=== PATIENT | male | born 1980 | race Caucasian/White ===

== ENCOUNTER 2021-07-14 14:42 | Emergency (ER) | payer OTHER ==
--- OUTSIDE RECORDS SUMMARY | 2021-07-14 14:52 | XMS REPORT | Continuity of Care Document ---
:1980 Author Organization [facility] Address [address] [place] [address] Care Team Providers Name Role Phone IHDE_G Attending Clinician Unavailable Froy Sherman MD, Deb Attending Clinician [phone] Unknown, Attending Attending Clinician Unavailable Momo Hendricks MD Attending Clinician IHDE_G Admitting Clinician Unavailable Payers Payer Name Policy Type Policy Number Effective Date Expiration Date [facility] [id number] 2016 00:00:00 Problems Condition Condition Condition Status Onset Resolution Last Treating Co mments Source Name Details Category Date Date Treatment Clinician Date No known No known Disease Unive rs active active ity of problems problems [facility] Allergies, Adverse Reactions, Alerts Allergy Allergy Status Severity Reaction(s) Onset Inactive Treating Comm ents Source Name Type Date Date Clinician Sulfa Propensi Active Rash Univers (Sulfona ty to 6-16 ity of mide adverse 00:00: [place] Antibiot reaction 00 Medica l ics) s Branch Abilify Allergy Active Severe Other [place] to da substan Medical e [facility] SULFA Allergy Active Severe Other [place] (SULFONA to da MIDE substan Medical ANTIBIOT e Group ICS) Social History Social Habit Start Date Stop Date Quantity Comments Source Sex Assigned At [facility] Smoking Status Start Date Stop Date Source Never Smoker [facility] Current every day smoker 2019-05-10 00:00:00 Uni [facility] Medications Ordered Filled Start Stop Current Ordering Indication Dosage Frequency Signature Comments Components Source Medication Medication Date Date Medication? Clinician (SIG) Name Name ketorolac 2020- No [id number] 30mg Un cristobal (TORADOL) 05-11 ity of injection 02:30: 02:09 [place] 30 mg 00 :00 Medical Branch ketorolac 2019-0 2020- No [id number] 30mg 30 mg, Univers (TORADOL) 2-22 02-22 Intramuscu ity of injection 02:30: 02:09 lar, ONCE, [place] 30 mg 00 :00 1 dose, Medical Fri Branch 05/10/19 at 2030, Routine
wireless team member approving Restricted medication : MOMO HENDRICKS naproxen 2019-0 Yes [id number] 500mg Take 1 U nivers 500 mg 2-21 tablet by ity of tablet 00:00: mouth 2 (two) Medical times Branch daily with meals. cyclobenzap 2019-0 Yes [id number] 7.5mg Take 1 Univers rine 7.5 mg 2-21 tablet by ity of tablet 00:00: mouth 3 (three) Medical times Branch daily as needed for Muscle Spasms. lisdexamfet Yes Vyvanse 30 Univers amine 2-01 mg capsule ity of (VYVANSE) 01:37: Take 1 [place] 30 mg 07 capsule Medical capsule every day Branch by oral route. lisinopril 2018-03 Yes 10mg Take 10 mg U nivers 10 mg 2-21 by mouth ity of tablet 00:00: daily. Medical Branch venlafaxine 0 Yes Effexor XR Univers XR (EFFEXOR 6-22 150 mg ity of XR) 150 mg 00:00: capsule,ex [place] 24 hr 00 tended Medical capsule release Branch Take 1 capsule every day by oral route. ketorolac 2017- Yes 1[drp] Place 1 Uni vers 0.4 % 9-20 Drop in ity of ophthalmic 00:00: [place] eye [place] solution 00 4 (four) Medical times Branch daily. gentamicin 2018-0 Yes 1[drp] Place 1 Un cristobal 0.3 % 9-20 Drop in ity of ophthalmic 00:00: right eye [place] drops 00 every 4 Medical (four) Branch hours. traMADOL 2020- No 50mg Take 1 Univer s (ULTRAM) 50 6-16 02-21 tablet by it y of mg tablet 00:00: 00:00 mouth [place] 00 :00 every 6 Medical (six) Branch hours as needed for Pain (scale 4-6). Adderall 20 Adderall 20 No 1 Q1D Adderall [place] mg tablet mg tablet 20 mg da Take 1 Take 1 tablet Medical tablet tablet Take 1 Group every day every day tablet by oral by oral every day route. route. by oral route. Cialis 10 Cialis 10 No 1 Q1D Cialis 10 [place] mg tablet mg tablet mg tablet da Take 1 Take 1 Take 1 Medical tablet tablet tablet Group every day every day every day by oral by oral by oral route. route. route. clonazepam clonazepam No 1 TID clonazepam [place] 0.5 mg 0.5 mg 0.5 mg da tablet Take tablet Take tablet Medical 1 tablet 3 1 tablet 3 Take 1 G roup times a day times a day tablet 3 by oral by oral times a route. route. day by oral route. Effexor XR Effexor XR No 1capsul Q1D Effexor XR [place] 150 mg 150 mg e(s) 150 mg da capsule,ext capsule,ext capsule,ex Medical ended ended tended Group release release release Take 1 Take 1 Take 1 capsule capsule capsule every day every day every day by oral by oral by oral route. route. route. lisinopril lisinopril No 1 Q1D lisinopril [place] 10 mg 10 mg 10 mg da tablet Take tablet Take tablet Medical 1 tablet 1 tablet Take 1 Group every day every day tablet by oral by oral every day route. route. by oral route. risperidone risperidone No 2 Q1D risperidon [place] 0.5 mg 0.5 mg e 0.5 mg da disintegrat disintegrat disintegra Medical ing tablet ing tablet ting [place] up Place 2 Place [address] 2 every day every day tablets by by every day translingua translingua by l route. l route. translingu al route. Xanax 0.25 Xanax 0.25 No 1 TID Xanax 0.25 [place] mg tablet mg tablet mg tablet da Take 1 Take 1 Take 1 Medical tablet 3 tablet 3 tablet 3 [place] up times a day times a day times a by oral by oral day by route. route. oral route. Vital Signs Vital Name Observation Time Observation Value Comments Source Systolic blood 2019-05-11 00:53:00 136 mm[Hg] Univer sity of pressure [facility] Diastolic blood 2019-05-11 00:53:00 96 mm[Hg] Unive rsity of pressure [facility] Heart rate 2019-05-11 00:47:00 109 /min Universi ty [facility] Body temperature 2019-05-11 00:47:00 36.78 Kathie Univ ersity of [facility] Respiratory rate 2019-05-11 00:47:00 17 /min [facility] Body height 2019-05-11 00:47:00 170.2 cm Universi ty [facility] Body weight 2019-05-11 00:47:00 85.458 kg Universi [facility] BMI 2019-05-11 00:47:00 29.51 kg/m2 [facility] Oxygen saturation in 2019-05-11 00:47:00 98 /min [facility] Arterial blood by [facility] Pulse oximetry Branch BP Diastolic 2018-10-30 00:00:00 80 mm[Hg] [facility] Height 2018-10-30 00:00:00 66 [in_i] [facility] BMI (Body Mass 2018-10-30 00:00:00 27.5 kg/m2 [facility] 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 BP Systolic 2018-10-30 00:00:00 122 mm[Hg] [facility] Body Weight 2018-10-30 00:00:00 170.6 [lb_av] [facility] Procedures Procedure Date / Time Performed Performing Clinician Sour e POCT URINALYSIS 2019-05-11 01:04:00 Momo Hendricks [place] [facility] Encounters Start End Encounter Admission Attending Care Care Encounter Source Date/Time Date/Time Type Type Clinicians Facility Department ID 2020-02-05 2020-02-05 Outpatient IHDE_G [facility] [id number] [place] 02:22:00 02:22:00 [id number] da Medical Group 2019-05-10 2019-05-10 Urgent Deb Alarcon [facility] [id number] [facility] 18:38:31 21:06:40 Care Unknown, Attending Health [id number] ity of Momo Hendricks E Surgical [id number] [facility] [id number] Ok dical es [address] [place] 2018-10-30 2018-10-30 Bryon [facility] [place] - [id number] M [facility] 00:00:00 00:00:00 Afshin Fontenot MD: Medical Medica [address], [address], [place] [address] , Ph. [phone] Results Test Description Test Time Test Comments Results Result Comments Source POCT URINALYSIS W SPECIFIC GRAVITY 2019-05-11 01:05:00 Test Item Value Reference Range Interpretation Comme nts POCT U SP GRAV (test code = 3255) 1.025 mg/dl 1.005-1.025 POCT PH U (test code = 3254) 5 mg/dl 5-8 POCT U LEUK EST (test code = 3263) neg Negative - Negative POCT U NIT (test code = 3262) neg Negative - Negative POCT U PROT (test code = 3259) neg Negative - Negative POCT U GLU (test code = 3256) neg Negative - Negative POCT U KETONE (test code = 3258) neg Negative - Negative POCT U UROBILI (test code = 3260) norm 0.2-1 POCT U BILI (test code = 3261) neg Negative - Negative POCT U BLD (test code = 3257) neg Negative - Negative POCT U COLOR (test code = 3266) yellow POCT U APPEAR (test code = 3267) clear Lab Interpretation (test code = 26611-8) Normal [facility]
[2021-07-14 15:58] LABS: Hematocrit 43.5 % (39.6-49.0); Lymphocytes % 24.9 % (15.3-44.8); MPV 8.4 fL (7.6-11.3); RBC Red Blood Cell Count 5.02 M/uL (4.33-5.43)
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
[2021-07-14 16:14] LABS: Potassium 3.4 mmol/L (3.5-5.1)
[2021-07-14] MEDS ORDERED: POTASSIUM 25 MEQ EFFERV TAB ONE (16:33)
[2021-07-14] MEDS ORDERED: FENTANYL CITR 100 MCG/2 ML ONE (16:33)
[2021-07-14] MEDS ORDERED: ONDANSETRON 4 MG/2 ML VIAL ONE (16:33)
[2021-07-14] MEDS ORDERED: NA CHLORIDE 0.9% 1,000 ML ONE (16:33)
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
[2021-07-14] MEDS ORDERED: LIDOCAINE 4% PATCH ONE (16:43)
[2021-07-14] MEDS ORDERED: CYCLOBENZAPRINE 10 MG TAB ONE (16:43)
[2021-07-14 17:18] VITALS: TEMP 98.4; O2SAT 100
[2021-07-14 17:23] VITALS: BP 120/74
== END 2021-07-14 16:56 | disposition home or self-care (01) ==
LOC: ER 14:42
DX: M54.50 Low back pain, unspecified (principal); M54.9 Dorsalgia, unspecified; V49.40XA Driver injured in collision with unspecified motor vehicles in traffic accident, initial encounter; I10 Essential (primary) hypertension
CPT/HCPCS: 85025; 80048; 36415; 86900; 86850; 86901; 70450; 72125; 71260; 74177; Q9967; J3010; J7030; J2405; 82565